=== PATIENT | male | born 1965 | race Caucasian/White ===

== ENCOUNTER 2020-05-25 18:56 | Emergency (ER) | payer MEDICAID ==
[~2020-05-25] VITALS: Ht 180.3 cm; Wt 96.0 kg
[2020-05-25 19:02] VITALS: BP 122/70
== END 2020-05-25 20:00 | disposition home or self-care (01) ==
LOC: ER 18:56
DX: Z00.00 Encounter for general adult medical examination without abnormal findings (principal)
CPT/HCPCS: 99283